=== PATIENT | female | born 1960 | race Caucasian/White ===

== ENCOUNTER 2017-05-26 21:48 | Emergency (ER) | payer MEDICAID, OTHER ==
[~2017-05-26] VITALS: Ht 160 cm; Wt 79.0 kg
[2017-05-26 21:52] VITALS: Ht 160 cm; Wt 79.0 kg
[2017-05-27] MEDS ORDERED: ONDANSETRON (ODT) 4 MG TAB ODT STA (00:22)
[2017-05-27] MEDS ORDERED: MECLIZINE 12.5 MG TAB PO ONE (00:30)
--- NOTE | 2017-05-27 00:38 | ERD ---
ER Documentation Chief Complaint Date/Time DATE: 05/27/17 TIME: 00:20 Chief Complaint feeling weak and dizzy, per pt she has high BP even though she took her med HPI 57-year-old female who presents emergency department for feeling weak and dizzy. This has been going on and off for about 5 days. Stated that she already took her blood pressure medicine today but still feels dizzy. She also complains of neck pain that is not reproducing. She also complains of headache. Denies throat pain, difficulty swallowing,, coughing, difficulty breathing, shortness of breath, abdominal pain chest pain, nausea, vomiting, recent exposure to any illness, recent antibiotic use in the last 3 months, numbness or tingling sensation, unilateral weakness, fever, chills. No known drug allergies. Past medical history of hypertension. No surgical history. Medication: Unknown name of the medications. Social: Not working at this time. Denies smoking, use of alcohol, use of illegal drugs. ROS All systems reviewed and are negative except as per history of present illness. Medications Home Meds Active Scripts Acetaminophen* (Tylophen*) 500 Mg Capsule, 1 CAP PO Q6H Y for PAIN AND OR ELEVATED TEMP, #20 CAP Prov:NESSILABANKEEGAN F 05/27/17 Ondansetron (Ondansetron Odt) 4 Mg Tab.rapdis, 4 MG PO Q6H Y for NAUSEA AND/OR VOMITING, #10 TAB Prov:PASILABAN,MICHELLEAR F 05/27/17 Meclizine Hcl* (Meclizine Hcl*) 25 Mg Tablet, 25 MG PO Q8H Y for DIZZINESS, #20 TAB Prov:NESSILABANKEEGAN F 05/27/17 Allergies Allergies: Coded Allergies: No Known Allergy (Unverified , 05/26/17) PMhx/Soc Medical and Surgical Hx: pt denies Surgical Hx History of Surgery: No Anesthesia Reaction: No Hx Neurological Disorder: No Hx Respiratory Disorders: No Hx Cardiac Disorders: Yes (HTN) Hx Psychiatric Problems: Yes (Depression) Hx Miscellaneous Medical Probl: No Hx Alcohol Use: No Hx Substance Use: No Hx Tobacco Use: No Smoking Status: Never smoker Physical Exam Vitals Vital Signs Date Time Temp Pulse Resp B/P Pulse Ox O2 Delivery O2 Flow Rate FiO2 05/26/17 21:52 98.2 73 20 169/80 97 Physical Exam Const: [] Head: Atraumatic Eyes: Normal Conjunctiva. PERRLA. Intraocular movement of her eyes within normal limits. No pain in eye movement. ENT: Normal External Ears, Nose and Mouth. Neck: Full range of motion..~ No meningismus. No neck stiffness. Negative on Brudzinski sign. Negative and noncutting sign. No signs of meningeal irritation. Resp: Clear to auscultation bilaterally. Cardio: Regular rate and rhythm, no murmurs Abd: Soft, non tender, non distended. Normal bowel sounds Skin: No petechiae or rashes Back: No midline or flank tenderness Ext: No cyanosis, or edema Neur: Awake and alert x4. Romberg test is negative. Psych: Normal Mood and Affect Result Diagram: 05/27/173905/27/1739 Results 24 hrs Laboratory Tests Test 05/27/17 00:40 05/27/17 00:55 White Blood Count 10.410^3/ul Red Blood Count 4.7510^6/ul Hemoglobin 14.1g/dl Hematocrit 41.3% Mean Corpuscular Volume 86.9fl Mean Corpuscular Hemoglobin 29.7pg Mean Corpuscular Hemoglobin Concent 34.1g/dl Red Cell Distribution Width 13.5% Platelet Count 65404^3/UL Mean Platelet Volume 12.7fl Neutrophils % 52.8% Lymphocytes % 38.3% Monocytes % 5.4% Eosinophils % 2.6% Basophils % 0.6% Nucleated Red Blood Cells % 0.0/100WBC Neutrophils # 5.510^3/ul Lymphocytes # 4.010^3/ul Monocytes # 0.610^3/ul Eosinophils # 0.310^3/ul Basophils # 0.110^3/ul Nucleated Red Blood Cells # 0.010^3/ul Prothrombin Time 11.5Sec Prothrombin Time Ratio 0.9 INR International Normalized Ratio 0.84 Activated Partial Thromboplast Time 27.5Sec Sodium Level 141mmol/L Potassium Level 3.1mmol/L Chloride Level 96mmol/L Carbon Dioxide Level 34mmol/L Anion Gap 14 Blood Urea Nitrogen 25mg/dl Creatinine 1.00mg/dl Glucose Level 121mg/dl Calcium Level 9.9mg/dl Total Bilirubin 0.2mg/dl Direct Bilirubin 0.00mg/dl Indirect Bilirubin 0.2mg/dl Aspartate Amino Transf (AST/SGOT) 26IU/L Alanine Aminotransferase (ALT/SGPT) 32IU/L Alkaline Phosphatase 126IU/L Troponin I < 0.012ng/ml Total Protein 9.6g/dl Albumin 4.5g/dl Globulin 5.10g/dl Albumin/Globulin Ratio 0.88 Urine Color YELLOW Urine Clarity CLEAR Urine pH 5.0 Urine Specific [place] 1.014 Urine Ketones NEGATIVEmg/dL Urine Nitrite NEGATIVEmg/dL Urine Bilirubin NEGATIVEmg/dL Urine Urobilinogen NEGATIVEmg/dL Urine Leukocyte Esterase TRACELeu/ul Urine Microscopic RBC 1/HPF Urine Microscopic WBC 2/HPF Urine Squamous Epithelial Cells FEW/HPF Urine Bacteria FEW/HPF Urine Mucus FEW/HPF Urine Hemoglobin NEGATIVEmg/dL Urine Glucose NEGATIVEmg/dL Urine Total Protein NEGATIVEmg/dl Current Medications Medications (Trade) Dose Ordered Sig/Sameer Route PRN Reason Start Time Stop Time Status Last Admin Dose Admin Meclizine HCl (Antivert) 25 mg ONCE ONCE PO 05/27/17 00:30 05/27/17 00:31 DC 05/27/17 01:03 Ondansetron HCl (Zofran Odt) 4 mg ONCE STAT ODT 05/27/17 00:22 05/27/17 00:26 DC 05/27/17 01:03 Potassium Chloride (Klor-Con 20) 40 meq ONCE STAT PO 05/27/17 01:51 05/27/17 01:52 DC 05/27/17 01:55 Aspirin (Ecotrin) 325 mg ONCE ONCE PO 05/27/17 03:00 05/27/17 03:01 Procedures/[facility] 57-year-old female who presents emergency department for feeling weak and dizzy. This has been going on and off for about 5 days. Stated that she already took her blood pressure medicine today but still feels dizzy. She also complains of neck pain that is not reproducing. She also complains of headache. Denies throat pain, difficulty swallowing,, coughing, difficulty breathing, shortness of breath, abdominal pain chest pain, nausea, vomiting, recent exposure to any illness, recent antibiotic use in the last 3 months, numbness or tingling sensation, unilateral weakness, fever, chills. No known drug allergies. Past medical history of hypertension. No surgical history. Medication: Unknown name of the medications. Social: Not working at this time. Denies smoking, use of alcohol, use of illegal drugs. Physical exam: Alert and oriented 4. Speaks full and clear sentences. No neck stiffness. No supraspinatus tenderness to right upper and left upper back. No pain in eye movement. Extraocular movement of her eyes within normal limits. Lung sounds are clear to auscultation. No abdominal tenderness. No neurological deficits. Romberg test is negative. No neurovascular deficits. Disease process was explained to the patient and family members. They all verbalized understanding and agreed with the diagnostic test, treatment, plan of care. EKG: Sinus rhythm with a ventricular rate of 72 bpm. No evidence of acute myocardial infarction. No evidence of ischemia. Read by supervising physician , Dr. Jonathan Coughlin. CT of the brain: No acute intracranial pathology. Blood works: Hypokalemia. Treatment: Zofran. Antivert. K-Dur p.o. Reevaluation: Denies headache, dizziness, blurry vision, neck pain, difficulty swallowing, shoulder pain, chest pain, back pain, abdominal pain, nausea, vomiting. No episode of emesis in the emergency department. There is no right upper/right lower/epigastric/left upper/left lower abdominal tenderness and light and deep palpation. No neurological deficits. Romberg test is negative. No neurovascular deficits. Differential diagnosis: Subarachnoid hemorrhage versus stroke versus acute myocardial infarction versus acute coronary syndrome versus vertigo versus urinary tract infection Prescription: Antivert. Zofran. Tylenol. Follow-up with primary care physician the next 24-48 hours. Come back in the emergency department for any new symptoms or any worsening of symptoms. All questions and concerns are answered. Patient and family member verbalized understanding and agreed with the plan of care. Hemodynamically stable on discharge. Departure Diagnosis: Primary Impression: Vertigo Condition: Stable Additional Instructions: Follow-up with primary care physician the next 24-48 hours. Come back in the emergency department for any new symptoms or any worsening of symptoms. All questions and concerns are answered. Patient and family member verbalized understanding and agreed with the plan of care. KEEGAN CUNHA May 27, 2017 00:38
[2017-05-27 01:09] LABS: BASOPHIL # 0.1 10^3/ul (0.0-0.1); BASOPHILS % 0.6 % (0.0-2.0); EOSINOPHILS # 0.3 10^3/ul (0.0-0.5); EOSINOPHILS % 2.6 % (0.0-7.0); HEMATOCRIT 41.3 % (37.0-47.0); HEMOGLOBIN 14.1 g/dl (12.0-16.0); LYMPHOCYTES % 38.3 % (15.0-51.0); MEAN CORPUSCULAR HEMOGLOBIN 29.7 pg (29.0-33.0); MEAN CORPUSCULAR HGB CONC 34.1 g/dl (32.0-37.0); MEAN CORPUSCULAR VOLUME 86.9 fl (82.0-101.0); MEAN PLATELET VOLUME 12.7 fl (7.4-10.4); MONOCYTE # 0.6 10^3/ul (0.3-0.9); MONOCYTES % 5.4 % (0.0-11.0); NEUTROPHIL # 5.5 10^3/ul (1.6-7.5); NEUTROPHILS % 52.8 % (39.0-77.0); PLATELET COUNT 286 10^3/UL (140-415); RED BLOOD COUNT 4.75 10^6/ul (4.20-5.40); RED CELL DISTRIBUTION WIDTH 13.5 % (11.5-14.5); WHITE BLOOD COUNT 10.4 10^3/ul (4.8-10.8)
[2017-05-27 01:23] LABS: INR 0.84; PROTIME 11.5 Sec (12.2-14.2); PT RATIO 0.9
[2017-05-27 01:24] LABS: PARTIAL THROMBOPLASTIN TIME 27.5 Sec (25.0-35.0)
[2017-05-27 01:24] LABS: ADD UMIC YES; UR ASCORBIC ACID NEGATIVE (NEGATIVE); UR BACTERIA FEW /HPF (NONE SEEN); UR BILIRUBIN (Dip) NEGATIVE (NEGATIVE); UR BLOOD (Dip) NEGATIVE (NEGATIVE); UR CLARITY CLEAR (CLEAR); UR COLOR YELLOW (YELLOW); UR GLUCOSE (Dip) NEGATIVE (NEGATIVE); UR KETONES (Dip) NEGATIVE (NEGATIVE); UR LEUKOCYTE ESTERASE (Dip) TRACE Leu/ul (NEGATIVE); UR MUCUS FEW /HPF (NONE SEEN); UR NITRITE (Dip) NEGATIVE (NEGATIVE); UR RBC 1 /HPF (0-5); UR SPECIFIC GRAVITY (Dip) 1.014 (1.003-1.030); UR SQUAMOUS EPITHELIAL CELL FEW /HPF (FEW); UR TOTAL PROTEIN (Dip) NEGATIVE (NEGATIVE); UR UROBILINOGEN (Dip) NEGATIVE (NEGATIVE)
--- NOTE | 2017-05-27 01:28 | RADRPT ---
PROCEDURE: CT Brain without contrast. CLINICAL INDICATION: Headache. TECHNIQUE: A CT of the brain was performed utilizing axial sections from the skull base through th e vertex without contrast. Multiplanar re-formations were generated. Images were reviewed on a high- resolution PACS workstation. CTDIvol: 45.01 mGy. DLP: 720.23 mGy-cm. One or more of the following dose reduction techniques were used: - Automated exposure control. - Adjustment of the mA and/or kV according to patient size. - Use of iterative reconstruction technique. COMPARISON: None available FINDINGS: The sulci are normal size for the patient's age. No hydrocephalus is seen. There is no mass effect. No acute intracranial hemorrhage is identified. There is no extra-axial collection. Stein-white shemar er differentiation is preserved. There is no significant mucosal disease in the paranasal sinuses. The visualized mastoid air cells are clear. The ossesous structures are unremarkable. The extracranial soft tissues are unremarkable. IMPRESSION: 1. No acute intracranial pathology. RPTAT: HTAR .Kyle Agee MD, Date Time Electronically viewed and signed by .Kyle Agee MD, on 05/27/2017 01:28 .R/
[2017-05-27 01:33] LABS: ALANINE AMINOTRANSFERASE 32 IU/L (13-69); ALBUMIN 4.5 g/dl (3.3-4.9); ALBUMIN/GLOBULIN RATIO 0.88; ALKALINE PHOSPHATASE 126 IU/L (42-121); ANION GAP 14 (8-16); ASPARTATE AMINO TRANSFERASE 26 IU/L (15-46); BILIRUBIN,INDIRECT 0.2 mg/dl (0-1.1); BILIRUBIN,TOTAL 0.2 mg/dl (0.2-1.3); BLOOD UREA NITROGEN 25 mg/dl (7-20); CALCIUM 9.9 mg/dl (8.4-10.2); CARBON DIOXIDE 34 mmol/L (21-31); CHLORIDE 96 mmol/L (97-110); GLUCOSE 121 mg/dl (70-220); POTASSIUM 3.1 mmol/L (3.5-5.1); SODIUM 141 mmol/L (135-144); TOTAL PROTEIN 9.6 g/dl (6.1-8.1)
[2017-05-27 01:42] LABS: TROPONIN-I < 0.012 ng/ml (0.00-0.12)
[2017-05-27] MEDS ORDERED: POTASSIUM CHLORIDE (SR) 20 MEQ TAB PO STA (01:51)
[2017-05-27] MEDS ORDERED: MECL-77 PO (02:30)
[2017-05-27] MEDS ORDERED: ONDA4TAB14 PO (02:31)
[2017-05-27] MEDS ORDERED: ACET500C5 PO (02:31)
[2017-05-27] MEDS ORDERED: ASPIRIN (EC) 325 MG TAB PO ONE (03:00)
[2017-05-27 03:08] VITALS: BP 159/76; PULSE 72; RESP 16
== END 2017-05-27 03:09 | disposition home or self-care (01) ==
LOC: FTE 21:48
DX: R42 Dizziness and giddiness (principal); I10 Essential (primary) hypertension; R07.9 Chest pain, unspecified
CPT/HCPCS: 36415; 70450; 80053; 81001; 84484; 85025; 85610; 85730; 93005; Z7502; Z7610

== ENCOUNTER 2018-03-04 18:35 | Emergency (ER) | END 2018-03-04 21:59 | disposition home or self-care (01) ==